=== PATIENT | female | born 1955 | race Hispanic/Latino ===

== ENCOUNTER 2025-07-25 14:32 | Inpatient (IN) | payer MEDICARE, OTHER ==
[~2025-07-25] VITALS: Ht 162.6 cm; Wt 59.0 kg
[2025-07-25] MEDS ORDERED: ARTIFICAL TEARS SOL 15 ML OP PRN ×2 (17:30→18:00)
[2025-07-25] MEDS ORDERED: guaiFENesin-DM 200/20MG 10ML PO PRN (17:30)
[2025-07-25] MEDS ORDERED: LOPERAMIDE HCL 2 MG CAP PO PRN (17:30)
[2025-07-25] MEDS ORDERED: BENZOCAINE/MENTH/CETYLPYRD CL 1 EACH LOZENGE MM PRN (17:30)
[2025-07-25] MEDS ORDERED: MAG/ALUM/SIMETH 30 ML UDCUP PO PRN (17:30)
[2025-07-25] MEDS ORDERED: NITROGLYCERIN 0.4 MG SL TAB SL PRN (17:30)
[2025-07-25] MEDS ORDERED: LIDOCAINE HCL 2% VISCOUS 30 ML, MAG/ALUM/SIMETH 30ML 30 ML, DICYCLOMINE HCL 20 MG PO PRN (17:30)
--- NOTE | 2025-07-25 17:52 | NUR ---
PT BEDDED AT THIS TIME.
--- NOTE | 2025-07-25 18:15 | NUR ---
pt moved to er room 12 at this time assumed care
--- NOTE | 2025-07-25 20:14 | HP ---
[facility] HISTORY & PHYSICAL Date Patient Seen: Jul 25, 2025 Time of Visit: 20:07 Supervising Physician: Dr Fang Romero Primary Care Physician: Dr. Iqbal Outpatient Specialists: [ ] Inpatient Consults: [ ] PROBLEM LIST: Nonhealing wound, left middle finger status post incision and drainage, currently undergoing out of hospital wound care with Dr. Romero, POA Hypertension, POA Hyperlipidemia, POA DM type 2, with hyperglycemia, POA PLAN: Admit to medical-surgical floor with telemetry VS per unit protocol Facilitate MR I of the right hand Keep serum glucose less than 150 ISS and fingerstick per unit protocol Keep SBP less than 160 P.r.n. hydralazine and labetalol Replete electrolyte accordingly Wound care consult Heart healthy diet CBC, CMP, magnesium level daily HPI: 69-year-old female with past medical history of hypertension, DM type 2, hyperlipidemia, who presented to ED from Dr. Romero office here for evaluation of nonhealing left middle finger wound. Patient was seen and examined in ED with present at bedside. Apparently patient had a spider bite last June 2025, and underwent incision and drainage, afterwards was sent home on a 14 day course of antibiotic therapy (completed), and also undergoing wound care as outpatient with Dr. Romero. Today patient was sent to ER for evaluation of possible osteomyelitis on the affected finger. At present patient is currently hemodynamically stable, on room air with appropriate oxygen saturation, denies any headache, chest pain, fever, cough, diarrhea, or flu-like symptoms. Her only symptoms was nonetheless on her left middle finger and she had this since surgery. Patient denies any smoking, alcohol intake, or illicit drug use. PAST MEDICAL HX: see above PAST SURGICAL HX: noncontributory SOCIAL HISTORY: No tobacco, ETOH, or illicit drug use Coded Allergies: No Known Drug Allergies (Unverified Allergy, Unknown, 07/25/25) REVIEW OF SYSTEMS: 12 point ROS reviewed with patient. Pertinent positives mentioned above. Otherwise negative. PHYSICAL EXAM: GENERAL: alert, weak, awake oriented x 3 HEENT: EOMI, Sclera non icteric, moist mucosa NECK: Supple, no JVD, trachea midline LUNGS: Clear breath sounds bilaterally. No wheezes HEART: Regular rate and rhythm. Normal S1 and S2, without murmurs ABD: Abdomen soft, nontender. Bowel sounds present EXT: No clubbing cyanosis or edema; with wound to left middle finger with dressing in place, no lissette drainage noted NEURO: Alert and oriented to person, follows commands Vital Signs (last 8hr) Date Time Temp Pulse Resp B/P (MAP) Pulse Ox O2 Delivery O2 Flow Rate FiO2 07/25/25 18:45 98.2 82 16 141/76 98 Room Air* 0 21 07/25/25 14:42 99.1 67 16 149/74 100 Room Air* 0 21 07/25/25 14:39 99.1 67 16 149/74 100 Room Air 0 LABS: DIAGNOSTICS / RADIOLOGY RESULTS: [ ] PLAN NEURO: Minimize central acting medications as possible. Maintain fall precautions, adequate lighting during the day PULMONARY: Supplemental 02 as needed. Maintain aspiration precautions at all times CARDIOVASCULAR: Follow hemodynamics. Vital signs per facility protocol GI & NUTRITION: Continue with nutritional support. Continue stool softeners and laxatives as needed. KIDNEYS & ELECTROLYTES: Strict monitoring of intake, output and overall fluid balance. Avoid nephrotoxic medications to the extent possible. Medications to be dosed according to renal function. Monitor electrolytes and replace as needed ENDOCRINE: Maintain blood glucose between 100-180 at all times. Hypoglycemia protocol in place INFECTIOUS DISEASE: Trend temperature, WBC and procalcitonin level Follow cultures, deescalate antibiotics as soon as possible. Panculture if new onset fever ONCOLOGY/HEMATOLOGY/COAGULATION: Monitor for s/s of bleeding Monitor hemoglobin, coagulation studies as needed SKIN: Pressure ulcer prevention per facility protocol Specialty mattress ORTHO/REHAB: Continue PT/OT Prophylaxis: Continue GI and DVT prophylaxis Code Status: Full Resuscitation Disposition: TBD Supervising physician: Dr. Fang ROBERTSON,YANY Jordan [facility] Jul 25, 2025 20:14
[2025-07-25 20:34] LABS: NUCLEATED RED BLOOD CELLS 0.0 % (0.0-0.19); PLATELET COUNT (AUTO) 355 K/uL (130-400); RED BLOOD CELL COUNT(AUTO) 3.99 MIL/uL (4.00-5.50); RED CELL DISTRIBUTION WIDTH 12.7 % (11.0-15.5); WHITE BLOOD COUNT (AUTO) 9.4 K/uL (4.8-10.8)
[2025-07-25 20:37] LABS: IMMATURE GRANULOCYTE ABSOLUTE 0.04 K/uL (0-1)
[2025-07-25 20:53] LABS: ASPARTATE AMINOTRANSFERASE 15.0 U/L (10-37); CREATININE 0.6 mg/dL (0.5-1.0); GLOMERULAR FILTR. RATE CALC 96.0 mL/min (>90); GLUCOSE,RANDOM 159.0 mg/dL (70-105); SODIUM SERUM 139.0 mmol/L (136-145); TOTAL PROTEIN, SERUM 7.6 g/dL (6.0-8.3); UREA NITROGEN, BLOOD 13.0 mg/dL (7-18)
[2025-07-26] VITALS (9 sets, daily range): BP systolic 144–176; BP diastolic 67–92; PULSE 81–90; RESP 14–20; TEMP 97.8–98.6; O2SAT 97
[2025-07-26] MEDS ORDERED: METF-444 PO (05:26)
[2025-07-26] MEDS ORDERED: ATOR20TA65 PO (05:26)
[2025-07-26] MEDS ORDERED: GLYB5TAB8 PO (05:26)
[2025-07-26] MEDS ORDERED: LISI20TA24 PO (05:26)
[2025-07-26] MEDS ORDERED: EMPA25TA PO (05:26)
[2025-07-26] MEDS ORDERED: FENO145T26 PO (05:26)
[2025-07-26 06:30] LABS: ASPARTATE AMINOTRANSFERASE 13.0 U/L (10-37); CREATININE 0.5 mg/dL (0.5-1.0); GLOMERULAR FILTR. RATE CALC 100.0 mL/min (>90); GLUCOSE,RANDOM 67.0 mg/dL (70-105); SODIUM SERUM 136.0 mmol/L (136-145); TOTAL PROTEIN, SERUM 7.3 g/dL (6.0-8.3); UREA NITROGEN, BLOOD 12.0 mg/dL (7-18)
--- NOTE | 2025-07-26 11:16 | NUR ---
DCP:HOME Pt currently lives at home with her Maikel Webster [phone]. Pt denies having any DME, home health, or provider services. Pt states that there are times that she does require assistance with ADLs and is the one to assist with tasks. PCP is Dr. Iqbal and uses [facility] for any RX needs. At [place] pt will want to go home and family can assist with transportation. Addendum: 07/26/25 at 1118 by MARIA DEL ROSARIO ALDRIDGE SS Amended: Links added.
[2025-07-26] MEDS ORDERED: PoTASSium chl 10% ELIXIR 20MEQ 20 MEQ/15 ML UDCUP PO PRN (12:00)
--- NOTE | 2025-07-26 12:49 | PN ---
[facility] PROGRESS NOTE Date Patient Seen: Jul 26, 2025 Time of Visit: 12:49 Supervising Physician: Dr. Shade Riddle Primary Care Physician: Dr. Iqbal Outpatient Specialists: [ ] Inpatient Consults: [ ] PROBLEM LIST: Nonhealing wound, left middle finger status post incision and drainage, currently undergoing out of hospital wound care with Dr. Romero, POA DM type 2, with hyperglycemia, POA Electrolytes derangement syndrome: Hypokalemia, POA Moderate protein calorie malnutrition, POA CHRONIC PROBLEM LIST: Hypertension, Hyperlipidemia, DM type 2, with hyperglycemia, PLAN: Telemetry MRI left middle finger hand, today 07/26/2025 Review and reconcile patient's home medications Follow recommendations of wound care physician Diabetes mellitus type 2 with sliding scale regular insulin DVT prophylaxis with heparin 5000 units subQ b.i.d. GI prophylaxis with Protonix 40 mg p.o. daily A.m. labs ordered INTERVAL HISTORY: The patient was assessed in seen sitting outside the bed in a chair near her spouse. Awake alert and oriented. Reviewed with patient and spouse diagnostic tests upcoming, left middle finger MRI, laboratory results and vital signs. Patient denies pain, shortness of the breath fever, chills, nauseousness, and constipation currently. Vital signs stable. Afebrile A.m. labs ordered REVIEW OF SYSTEMS: 12 point ROS reviewed with patient. Pertinent positives mentioned above. Otherwise negative. PHYSICAL EXAM: GENERAL: alert, weak, awake oriented x 3 HEENT: EOMI, Sclera non icteric, moist mucosa NECK: Supple, no JVD, trachea midline LUNGS: Clear breath sounds bilaterally. No wheezes HEART: Regular rate and rhythm. Normal S1 and S2, without murmurs ABD: Abdomen soft, nontender. Bowel sounds present EXT: No clubbing cyanosis or edema; with wound to left middle finger with dressing in place, no lissette drainage noted NEURO: Alert and oriented to person, follows commands Vital Signs (last 8hr) Date Time Temp Pulse Resp B/P (MAP) Pulse Ox O2 Delivery O2 Flow Rate FiO2 07/26/25 11:17 98.1 83 14 146/80 99 Room Air 07/26/25 07:41 98.2 90 18 147/92 97 Room Air LABS: Hematology Labs: Test 07/25/25 17:55 Range/Units White Blood Count 9.4 4.8-10.8 K/uL Red Blood Count 3.99 L 4.00-5.50 MIL/uL Hemoglobin 11.6 L 12.0-16.0 g/dL Hematocrit 35.2 L 36-48 % Mean Corpuscular Volume 88.2 79-99 fL Mean Corpuscular Hemoglobin 29.1 27.0-33.0 pg Mean Corpuscular Hemoglobin Concent 33.0 32.0-36.0 g/dL Red Cell Distribution Width 12.7 11.0-15.5 % Platelet Count 355 130-400 K/uL Mean Platelet Volume 10.1 7.5-10.5 fL Immature Granulocyte % (Auto) 0.4 0-1 % Neutrophils (%) (Auto) 73.8 40.0-77.0 % Lymphocytes (%) (Auto) 17.8 L 21.0-51.0 % Monocytes (%) (Auto) 6.7 3.0-13.0 % Eosinophils (%) (Auto) 1.1 0.0-8.0 % Basophils (%) (Auto) 0.2 0.0-5.0 % Neutrophils # (Auto) 7.0 1.8-7.7 K/uL Lymphocytes # (Auto) 1.7 1.0-4.8 K/uL Monocytes # (Auto) 0.6 0.1-1.0 K/uL Eosinophils # (Auto) 0.10 0.00-0.70 K/uL Basophils # (Auto) 0.02 0.00-0.20 K/uL Absolute Immature Granulocyte (auto 0.04 0-1 K/uL Nucleated Red Blood Cells 0.0 0.0-0.19 % Chemistry Labs: Test 07/26/25 10:48 07/26/25 05:54 07/25/25 20:27 07/25/25 17:55 Range/Units Whole Blood Glucose 149 #H 70-110 MG/DL Sodium Level 136 136-145 mmol/L Potassium Level 3.2 L 3.5-5.1 mmol/L Chloride Level 99 L 101-111 mmol/L Carbon Dioxide Level 25 21-32 mmol/L Blood Urea Nitrogen 12 7-18 mg/dL Creatinine 0.5 0.5-1.0 mg/dL Glomerular Filtration Rate Calc 100 >90 mL/min Random Glucose 67 #L 70-105 mg/dL Total Calcium 8.6 8.5-10.1 mg/dL Total Bilirubin 0.4 0.2-1.0 mg/dL Aspartate Amino Transf (AST/SGOT) 13 10-37 U/L Alanine Aminotransferase (ALT/SGPT) 13 12-78 U/L Alkaline Phosphatase 91 50-136 U/L Total Protein 7.3 6.0-8.3 g/dL Albumin 2.8 L 3.5-5.0 g/dL Magnesium Level 2.00 1.80-2.40 mg/dL C-Reactive Protein, Quantitative 79.70 H 0.5-3.0 mg/L Procalcitonin 0.13 0.05-0.5 ng/mL Test 07/25/25 17:50 Range/Units Hemoglobin A1c 9.5 H 4.0-6.0 % Estimated Average Glucose (eAG) 226 H 70-126 mg/dL DIAGNOSTICS / RADIOLOGY RESULTS: [ ] PLAN NEURO: Minimize central acting medications as possible. Maintain fall precautions, adequate lighting during the day PULMONARY: Supplemental 02 as needed. Maintain aspiration precautions at all times CARDIOVASCULAR: Follow hemodynamics. Vital signs per facility protocol GI & NUTRITION: Continue with nutritional support. Continue stool softeners and laxatives as needed. KIDNEYS & ELECTROLYTES: Strict monitoring of intake, output and overall fluid balance. Avoid nephrotoxic medications to the extent possible. Medications to be dosed according to renal function. Monitor electrolytes and replace as needed ENDOCRINE: Maintain blood glucose between 100-180 at all times. Hypoglycemia protocol in place INFECTIOUS DISEASE: Trend temperature, WBC and procalcitonin level Follow cultures, deescalate antibiotics as soon as possible. Panculture if new onset fever ONCOLOGY/HEMATOLOGY/COAGULATION: Monitor for s/s of bleeding Monitor hemoglobin, coagulation studies as needed SKIN: Pressure ulcer prevention per facility protocol Specialty mattress ORTHO/REHAB: Continue PT/OT Prophylaxis: Continue GI and DVT prophylaxis Code Status: Full Resuscitation Disposition: SAAD HATHAWAY AGACNP Jul 26, 2025 12:49
--- NOTE | 2025-07-26 13:57 | NUR ---
[facility] Consult: Patient assessed by wound healing team. See wound assessment. Assessment and recommendations provided to primary nurse. Education provided to patient r/t to wound and wound care treatment. Addendum: 07/26/25 at 1522 by DENISE TANG RN RN/ Amended: Links added.
[2025-07-26] MEDS: PoTASSium chloRIDE 20MEQ ER 20 MEQ ERTAB PO PRN (14:14)
--- NOTE | 2025-07-26 15:31 | CONS ---
CONSULTATION NOTE Date of Service: Jul 26, 2025 Reason for Consultation: [ ] Requesting Physician: [ ] HISTORY OF PRESENT ILLNESS: Patient is evaluated at bedside in room 329 with at bedside. The patient is a 69-year-old female with past medical history of hypertension, DM type 2, hyperlipidemia, who presented to ED from Dr. Romero office here for evaluation of nonhealing left middle finger wound. Patient was seen and examined in ED with present at bedside. Apparently patient had a spider bite last June 2025, and underwent incision and drainage, afterwards was sent home on a 14 day course of antibiotic therapy (completed), and also undergoing wound care as outpatient with Dr. Romero. Today patient was sent to ER for evaluation of possible osteomyelitis on the affected finger. Pending MRI today. REVIEW OF SYSTEMS CONSTITUTIONAL: Denies fever, chills, or fatigue. HEAD/FACE: No signs of trauma. EENT: Denies eye pain, blurred vision, double vision, or light sensitivity. RESPIRATORY: Denies shortness of breath, cough, wheezing CARDIOVASCULAR: Denies chest pain, palpitation, syncope GASTROINTESTINAL/ABDOMINAL: Denies abdominal pain, constipation, diarrhea, nausea or vomiting GENITOURINARY: Denies dysuria or hematuria. MUSCULOSKELETAL: Denies joint pain, tenderness, or trauma. INTEGUMENTARY: Denies rash or itchiness NEUROLOGICAL/PSYCH: Denies anxiety, depression, heat or cold intolerance. PAST MEDICAL HX: see above PAST SURGICAL HX: noncontributory SOCIAL HISTORY: No tobacco, ETOH, or illicit drug use Coded Allergies: No Known Drug Allergies (Unverified Allergy, Unknown, 07/25/25) REVIEW OF SYSTEMS: 12 point ROS reviewed with patient. Pertinent positives mentioned above. Otherwise negative. Coded Allergies: No Known Drug Allergies (Unverified Allergy, Unknown, 07/25/25) PHYSICAL EXAM EYES: Anicteric. Pupils equal and reactive. HENT: No oral thrush seen, moist Oral mucosa NECK: Supple, no JVD or thyromegaly. LUNGS: Good air entry. No rales, no rhonchi. CARDIOVASCULAR: S1, S2 regular. No murmur heard. ABDOMEN: Soft, non tender, bowel sounds present, no organomegaly CENTRAL NERVOUS SYSTEM: Awake, alert, oriented x 3. No focal deficits. SKIN: No rashes, no swelling. LYMPHATICS: No peripheral lymphadenopathy MUSCULOSKELETAL: No joint swelling, erythema or tenderness. EXTREMITIES: No cyanosis or clubbing BACK: No deformity, no pressure ulcer. GENITOURINARY: No dysuria or hematuria Vital Sign (Last 24 Hours) 07/26/25 07/26/25 08:20 15:26 Temp 98.1 Pulse 89 Resp 18 B/P (MAP) 176/85 Pulse Ox 97 O2 Delivery Room Air O2 Flow Rate 0 FiO2 21 LABS: Laboratory: Test 07/26/25 10:48 07/26/25 05:54 07/25/25 20:27 07/25/25 17:55 Range/Units Whole Blood Glucose 149 #H 70-110 MG/DL Sodium Level 136 136-145 mmol/L Potassium Level 3.2 L 3.5-5.1 mmol/L Chloride Level 99 L 101-111 mmol/L Carbon Dioxide Level 25 21-32 mmol/L Blood Urea Nitrogen 12 7-18 mg/dL Creatinine 0.5 0.5-1.0 mg/dL Glomerular Filtration Rate Calc 100 >90 mL/min Random Glucose 67 #L 70-105 mg/dL Total Calcium 8.6 8.5-10.1 mg/dL Total Bilirubin 0.4 0.2-1.0 mg/dL Aspartate Amino Transf (AST/SGOT) 13 10-37 U/L Alanine Aminotransferase (ALT/SGPT) 13 12-78 U/L Alkaline Phosphatase 91 50-136 U/L Total Protein 7.3 6.0-8.3 g/dL Albumin 2.8 L 3.5-5.0 g/dL Magnesium Level 2.00 1.80-2.40 mg/dL C-Reactive Protein, Quantitative 79.70 H 0.5-3.0 mg/L White Blood Count 9.4 4.8-10.8 K/uL Red Blood Count 3.99 L 4.00-5.50 MIL/uL Hemoglobin 11.6 L 12.0-16.0 g/dL Hematocrit 35.2 L 36-48 % Mean Corpuscular Volume 88.2 79-99 fL Mean Corpuscular Hemoglobin 29.1 27.0-33.0 pg Mean Corpuscular Hemoglobin Concent 33.0 32.0-36.0 g/dL Red Cell Distribution Width 12.7 11.0-15.5 % Platelet Count 355 130-400 K/uL Mean Platelet Volume 10.1 7.5-10.5 fL Immature Granulocyte % (Auto) 0.4 0-1 % Neutrophils (%) (Auto) 73.8 40.0-77.0 % Lymphocytes (%) (Auto) 17.8 L 21.0-51.0 % Monocytes (%) (Auto) 6.7 3.0-13.0 % Eosinophils (%) (Auto) 1.1 0.0-8.0 % Basophils (%) (Auto) 0.2 0.0-5.0 % Neutrophils # (Auto) 7.0 1.8-7.7 K/uL Lymphocytes # (Auto) 1.7 1.0-4.8 K/uL Monocytes # (Auto) 0.6 0.1-1.0 K/uL Eosinophils # (Auto) 0.10 0.00-0.70 K/uL Basophils # (Auto) 0.02 0.00-0.20 K/uL Absolute Immature Granulocyte (auto 0.04 0-1 K/uL Nucleated Red Blood Cells 0.0 0.0-0.19 % Procalcitonin 0.13 0.05-0.5 ng/mL Test 07/25/25 17:50 Range/Units Hemoglobin A1c 9.5 H 4.0-6.0 % Estimated Average Glucose (eAG) 226 H 70-126 mg/dL DIAGNOSTICS / RADIOLOGY: [ ] PROBLEM LIST : Non healing wound of left middle finger Type 2 dm with other skin ulcer PLAN: Wound care to left middle finger - Cleanse with normal saline, pat dry, apply santyl, cover with gauze, secure with tape change daily and prn MRI of left hand today Keep wounds clean and dry Offloading/reposition q 2 hours Comorbidities per primary care team Further Management per hospital course. Thank You for the consult and allowing us to participate in the care of this patient. ATTESTATION BY PHYSICIAN I have seen and examined the patient. I reviewed the documentation, medical decision making, and treatment plan as noted by the mid-level provider above. I agree with the findings and plan of care. REDD ROMERO MD, [address] [employer] [employer] Jul 26, 2025 15:31
[2025-07-27] VITALS (8 sets, daily range): BP systolic 126–146; BP diastolic 64–76; PULSE 78–83; RESP 15–20; TEMP 97.4–98.3; O2SAT 97–98
[2025-07-27] MEDS: FENOFIBRATE NANOCRYSTALLIZED 145 MG TAB PO SCH (08:27)
[2025-07-27] MEDS: LISINOPRIL 20 MG TABLET PO SCH (08:28)
--- NOTE | 2025-07-27 21:39 | PN ---
[facility] PROGRESS NOTE Date Patient Seen: Jul 27, 2025 Time of Visit: 21:35 Supervising Physician: Dr. Romero Primary Care Physician: Dr. Iqbal Outpatient Specialists: Dr. Rey Romero (Wound care) Inpatient Consults: [Dr. Rey Romero (Wound care) PROBLEM LIST: Nonhealing wound, left middle finger status post incision and drainage, currently undergoing out of hospital wound care with Dr. Romero, POA -awaiting MRI left middle finger results DM type 2, with hyperglycemia, POA Electrolytes derangement syndrome: Hypokalemia, POA Moderate protein calorie malnutrition, POA CHRONIC PROBLEM LIST: Hypertension, Hyperlipidemia, DM type 2, with hyperglycemia, PLAN: Telemetry MRI left middle finger hand, today 07/26/2025 Review and reconcile patient's home medications Antibiotic therapy: Zosyn 3.375 g IV Q8Hr Follow recommendations of wound care physician Diabetes mellitus type 2 with sliding scale regular insulin DVT prophylaxis with heparin 5000 units subQ b.i.d. GI prophylaxis with Protonix 40 mg p.o. daily A.m. labs ordered INTERVAL HISTORY: 07/26-The patient was assessed in seen sitting outside the bed in a chair near her spouse. Awake alert and oriented. Reviewed with patient and spouse diagnostic tests upcoming, left middle finger MRI, laboratory results and vital signs. Patient denies pain, shortness of the breath fever, chills, nauseousness, and constipation currently. Vital signs stable. Afebrile A.m. labs ordered 07/27-examined saw the patient by myself. Left middle finger dressing status post incision and drainage by wound care physician as an outpatient. Patient is status post clues spider bite. Patient denies pain, fever, chills, nauseousness, weakness in left hand, and constipation. Vital signs were stable. Awaiting results of MRI. Antibiotic therapy: Zosyn 3.375 g IV q.8 hours. A. m. labs ordered REVIEW OF SYSTEMS: 12 point ROS reviewed with patient. Pertinent positives mentioned above. Otherwise negative. PHYSICAL EXAM: GENERAL: alert, weak, awake oriented x 3 HEENT: EOMI, Sclera non icteric, moist mucosa NECK: Supple, no JVD, trachea midline LUNGS: Clear breath sounds bilaterally. No wheezes HEART: Regular rate and rhythm. Normal S1 and S2, without murmurs ABD: Abdomen soft, nontender. Bowel sounds present EXT: No clubbing cyanosis or edema; with wound to left middle finger with dressing in place, no lissette drainage noted NEURO: Alert and oriented to person, follows commands Vital Signs (last 8hr) Date Time Temp Pulse Resp B/P (MAP) Pulse Ox O2 Delivery O2 Flow Rate FiO2 07/27/25 20:38 97.9 79 18 138/70 98 Room Air 07/27/25 15:41 97.3 79 15 144/73 98 Room Air LABS: Chemistry Labs: Test 07/27/25 19:10 07/26/25 05:54 Range/Units Whole Blood Glucose 138 H 70-110 MG/DL Sodium Level 136 136-145 mmol/L Potassium Level 3.2 L 3.5-5.1 mmol/L Chloride Level 99 L 101-111 mmol/L Carbon Dioxide Level 25 21-32 mmol/L Blood Urea Nitrogen 12 7-18 mg/dL Creatinine 0.5 0.5-1.0 mg/dL Glomerular Filtration Rate Calc 100 >90 mL/min Random Glucose 67 #L 70-105 mg/dL Total Calcium 8.6 8.5-10.1 mg/dL Total Bilirubin 0.4 0.2-1.0 mg/dL Aspartate Amino Transf (AST/SGOT) 13 10-37 U/L Alanine Aminotransferase (ALT/SGPT) 13 12-78 U/L Alkaline Phosphatase 91 50-136 U/L Total Protein 7.3 6.0-8.3 g/dL Albumin 2.8 L 3.5-5.0 g/dL DIAGNOSTICS / RADIOLOGY RESULTS: [ ] PLAN: Telemetry MRI left middle finger hand, today 07/26/2025 Review and reconcile patient's home medications Antibiotic therapy: Zosyn 3.375 g IV Q8Hr Follow recommendations of wound care physician Diabetes mellitus type 2 with sliding scale regular insulin DVT prophylaxis with heparin 5000 units subQ b.i.d. GI prophylaxis with Protonix 40 mg p.o. daily A.m. labs ordered NEURO: Minimize central acting medications as possible. Maintain fall precautions, adequate lighting during the day PULMONARY: Supplemental 02 as needed. Maintain aspiration precautions at all times CARDIOVASCULAR: Follow hemodynamics. Vital signs per facility protocol GI & NUTRITION: Continue with nutritional support. Continue stool softeners and laxatives as needed. KIDNEYS & ELECTROLYTES: Strict monitoring of intake, output and overall fluid balance. Avoid nephrotoxic medications to the extent possible. Medications to be dosed according to renal function. Monitor electrolytes and replace as needed ENDOCRINE: Maintain blood glucose between 100-180 at all times. Hypoglycemia protocol in place INFECTIOUS DISEASE: Trend temperature, WBC and procalcitonin level Follow cultures, deescalate antibiotics as soon as possible. Panculture if new onset fever ONCOLOGY/HEMATOLOGY/COAGULATION: Monitor for s/s of bleeding Monitor hemoglobin, coagulation studies as needed SKIN: Pressure ulcer prevention per facility protocol Specialty mattress ORTHO/REHAB: Continue PT/OT Prophylaxis: Continue GI and DVT prophylaxis Code Status: Full Resuscitation Disposition: SAAD HATHAWAY AGACNP Jul 27, 2025 21:39
[2025-07-27] MEDS: ZOSYN 3.375GM +NS 50ML IV SCH (22:36)
[2025-07-28] VITALS (7 sets, daily range): BP systolic 130–151; BP diastolic 59–76; PULSE 75–86; RESP 14–18; TEMP 97.3–98.7; O2SAT 98
--- NOTE | 2025-07-28 04:13 | HMCIMG ---
EXAM: MR Left Hand Finger without IV Contrast CLINICAL HISTORY: Left middle finger infection. TECHNIQUE: Multiplanar multi-sequence MRI of the left hand. CONTRAST: None. COMPARISON: None provided. FINDINGS: Multifocal bony erosions and bone marrow edema involving the third finger distal, middle, and proximal phalanx, most pronounced in the distal phalanx with surrounding soft tissue edema, compatible with osteomyelitis and cellulitis. No drainable fluid collection or abscess is evident. The volar and dorsal tendon/neto mechanisms are grossly intact to the extent visualized. Collateral ligaments are grossly unremarkable. The ulnar collateral and radial collateral ligaments are grossly unremarkable. IMPRESSION: Multifocal bony erosions and bone marrow edema involving the third finger distal, middle, and proximal phalanx, most pronounced in the distal phalanx with surrounding soft tissue edema, compatible with osteomyelitis and cellulitis. No drainable fluid collection or abscess is evident. /[facility]
[2025-07-28 04:58] LABS: IMMATURE GRANULOCYTE ABSOLUTE 0.04 K/uL (0-1); NUCLEATED RED BLOOD CELLS 0.0 % (0.0-0.19); PLATELET COUNT (AUTO) 339 K/uL (130-400); RED BLOOD CELL COUNT(AUTO) 3.66 MIL/uL (4.00-5.50); RED CELL DISTRIBUTION WIDTH 12.9 % (11.0-15.5); WHITE BLOOD COUNT (AUTO) 6.7 K/uL (4.8-10.8)
[2025-07-28 05:21] LABS: ASPARTATE AMINOTRANSFERASE 14.0 U/L (10-37); CREATININE 0.6 mg/dL (0.5-1.0); GLOMERULAR FILTR. RATE CALC 96.0 mL/min (>90); GLUCOSE,RANDOM 160.0 mg/dL (70-105); SODIUM SERUM 137.0 mmol/L (136-145); TOTAL PROTEIN, SERUM 6.9 g/dL (6.0-8.3); UREA NITROGEN, BLOOD 15.0 mg/dL (7-18)
--- NOTE | 2025-07-28 11:08 | PN ---
[facility] PROGRESS NOTE Date Patient Seen: Jul 28, 2025 Time of Visit: 11:04 Supervising Physician: Dr. Shade Riddle Primary Care Physician: Dr. Iqbal Outpatient Specialists: Dr. Rey Romero (Wound care) Inpatient Consults: [Dr. Rey Romero (Wound care) Dr. Ballesteros (ID) PROBLEM LIST: Nonhealing wound, left middle finger status post incision and drainage, out of hospital wound care with Dr. Romero, POA -MRI results osteomyelitis and cellulitis DM type 2, with hyperglycemia, POA Electrolytes derangement syndrome: Hypokalemia, POA Moderate protein calorie malnutrition, POA CHRONIC PROBLEM LIST: Hypertension, Hyperlipidemia, DM type 2, with hyperglycemia, PLAN: Telemetry MRI left middle finger hand, today 07/26/2025 Review and reconcile patient's home medications Antibiotic therapy: Zosyn 3.375 g IV Q8Hr Consult ID specialist Follow recommendations of wound care physician Diabetes mellitus type 2 with sliding scale regular insulin DVT prophylaxis with heparin 5000 units subQ b.i.d. GI prophylaxis with Protonix 40 mg p.o. daily A.m. labs ordered INTERVAL HISTORY: 07/26-The patient was assessed in seen sitting outside the bed in a chair near her spouse. Awake alert and oriented. Reviewed with patient and spouse diagnostic tests upcoming, left middle finger MRI, laboratory results and vital signs. Patient denies pain, shortness of the breath fever, chills, nauseousness, and constipation currently. Vital signs stable. Afebrile A.m. labs ordered 07/27-examined saw the patient by myself. Left middle finger dressing status post incision and drainage by wound care physician as an outpatient. Patient is status post clues spider bite. Patient denies pain, fever, chills, nauseousness, weakness in left hand, and constipation. Vital signs were stable. Awaiting results of MRI. Antibiotic therapy: Zosyn 3.375 g IV q.8 hours. A.m. labs ordered 07/28-Assessed and examined patient was seen by myself while sitting in a chair with her present awake alert and oriented and in no acute distress. Reviewed and discussed with the patient results from MRI procedure: Suspect based on results:Multifocal bony erosions and bone marrow edema involving the t hird finger distal, middle, and proximal phalanx, most pronounced in the distal phalanx with surrounding soft tissue edema, compatible with osteomyelitis and cellulitis.. Patient denies pain, fever, nauseousness, diarrhea and constipation currently. Awaiting recommendations from ID specialists. A.m. labs ordered REVIEW OF SYSTEMS: 12 point ROS reviewed with patient. Pertinent positives mentioned above. Otherwise negative. PHYSICAL EXAM: GENERAL: alert, weak, awake oriented x 3 HEENT: EOMI, Sclera non icteric, moist mucosa NECK: Supple, no JVD, trachea midline LUNGS: Clear breath sounds bilaterally. No wheezes HEART: Regular rate and rhythm. Normal S1 and S2, without murmurs ABD: Abdomen soft, nontender. Bowel sounds present EXT: No clubbing cyanosis or edema; with wound to left middle finger with dressing in place, no lissette drainage noted NEURO: Alert and oriented to person, follows commands Vital Signs (last 8hr) Date Time Temp Pulse Resp B/P (MAP) Pulse Ox O2 Delivery O2 Flow Rate FiO2 07/28/25 07:38 98.1 78 14 151/71 98 Room Air 07/28/25 04:11 97.3 80 18 149/76 99 Room Air LABS: Hematology Labs: Test 07/28/25 04:25 Range/Units White Blood Count 6.7 4.8-10.8 K/uL Red Blood Count 3.66 L 4.00-5.50 MIL/uL Hemoglobin 10.7 L 12.0-16.0 g/dL Hematocrit 31.0 L 36-48 % Mean Corpuscular Volume 84.7 79-99 fL Mean Corpuscular Hemoglobin 29.2 27.0-33.0 pg Mean Corpuscular Hemoglobin Concent 34.5 32.0-36.0 g/dL Red Cell Distribution Width 12.9 11.0-15.5 % Platelet Count 339 130-400 K/uL Mean Platelet Volume 9.3 7.5-10.5 fL Immature Granulocyte % (Auto) 0.6 0-1 % Neutrophils (%) (Auto) 72.2 40.0-77.0 % Lymphocytes (%) (Auto) 20.3 L 21.0-51.0 % Monocytes (%) (Auto) 5.8 3.0-13.0 % Eosinophils (%) (Auto) 1.0 0.0-8.0 % Basophils (%) (Auto) 0.1 0.0-5.0 % Neutrophils # (Auto) 4.8 1.8-7.7 K/uL Lymphocytes # (Auto) 1.4 1.0-4.8 K/uL Monocytes # (Auto) 0.4 0.1-1.0 K/uL Eosinophils # (Auto) 0.07 0.00-0.70 K/uL Basophils # (Auto) 0.01 0.00-0.20 K/uL Absolute Immature Granulocyte (auto 0.04 0-1 K/uL Nucleated Red Blood Cells 0.0 0.0-0.19 % Chemistry Labs: Test 07/28/25 10:47 07/28/25 04:25 Range/Units Whole Blood Glucose 209 H 70-110 MG/DL Sodium Level 137 136-145 mmol/L Potassium Level 4.0 3.5-5.1 mmol/L Chloride Level 100 L 101-111 mmol/L Carbon Dioxide Level 23 21-32 mmol/L Blood Urea Nitrogen 15 7-18 mg/dL Creatinine 0.6 0.5-1.0 mg/dL Glomerular Filtration Rate Calc 96 >90 mL/min Random Glucose 160 H 70-105 mg/dL Total Calcium 8.7 8.5-10.1 mg/dL Magnesium Level 2.00 1.80-2.40 mg/dL Total Bilirubin 0.5 0.2-1.0 mg/dL Aspartate Amino Transf (AST/SGOT) 14 10-37 U/L Alanine Aminotransferase (ALT/SGPT) 16 12-78 U/L Alkaline Phosphatase 79 50-136 U/L Total Protein 6.9 6.0-8.3 g/dL Albumin 2.7 L 3.5-5.0 g/dL DIAGNOSTICS / RADIOLOGY RESULTS: ASON: LEFT MIDDLE FINGER INFECTION ORDERING PHYSICIAN: DIOGENES ROMERO MD PROCEDURE: HND LT WO - MR HAND LEFT WO EXAM: MR Left Hand Finger without IV Contrast CLINICAL HISTORY: Left middle finger infection. TECHNIQUE: Multiplanar multi-sequence MRI of the left hand. CONTRAST: None. COMPARISON: None provided. FINDINGS: Multifocal bony erosions and bone marrow edema involving the third finger distal, middle, and proximal phalanx, most pronounced in the distal phalanx with surrounding soft tissue edema, compatible with osteomyelitis and cellulitis. No drainable fluid collection or abscess is evident. The volar and dorsal tendon/neto mechanisms are grossly intact to the extent visualized. Collateral ligaments are grossly unremarkable. The ulnar collateral and radial collateral ligaments are grossly unremarkable. IMPRESSION: Multifocal bony erosions and bone marrow edema involving the third finger distal, middle, and proximal phalanx, most pronounced in the distal phalanx with surrounding soft tissue edema, compatible with osteomyelitis and cellulitis. No drainable fluid collection or abscess is evident. /[place] DICTATED BY: LINDA PEREZ Jr., MD DATE: 07/28/25511 ELECTRONICALLY SIGNED BY: LINDA PEREZ Jr., MD DATE: 07/28/25511 PLAN: Telemetry MRI left middle finger hand, today 07/26/2025 Review and reconcile patient's home medications Antibiotic therapy: Zosyn 3.375 g IV Q8Hr Follow recommendations of wound care physician New consult ID specialists Diabetes mellitus type 2 with sliding scale regular insulin DVT prophylaxis with heparin 5000 units subQ b.i.d. GI prophylaxis with Protonix 40 mg p.o. daily A.m. labs ordered NEURO: Minimize central acting medications as possible. Maintain fall precautions, adequate lighting during the day PULMONARY: Supplemental 02 as needed. Maintain aspiration precautions at all times CARDIOVASCULAR: Follow hemodynamics. Vital signs per facility protocol GI & NUTRITION: Continue with nutritional support. Continue stool softeners and laxatives as needed. KIDNEYS & ELECTROLYTES: Strict monitoring of intake, output and overall fluid balance. Avoid nephrotoxic medications to the extent possible. Medications to be dosed according to renal function. Monitor electrolytes and replace as needed ENDOCRINE: Maintain blood glucose between 100-180 at all times. Hypoglycemia protocol in place INFECTIOUS DISEASE: Trend temperature, WBC and procalcitonin level Follow cultures, deescalate antibiotics as soon as possible. Panculture if new onset fever ONCOLOGY/HEMATOLOGY/COAGULATION: Monitor for s/s of bleeding Monitor hemoglobin, coagulation studies as needed SKIN: Pressure ulcer prevention per facility protocol Specialty mattress ORTHO/REHAB: Continue PT/OT Prophylaxis: Continue GI and DVT prophylaxis Code Status: Full Resuscitation Disposition: SAAD HATHAWAY AGACNP Jul 28, 2025 11:08
[2025-07-28] MEDS ORDERED: VANCOMYCIN PROTOCOL PER PHARMACY IV SCH (12:00)
[2025-07-28 12:17] LABS: INR 1.08 (0.85-1.15)
[2025-07-28] MEDS: VANCOMYCIN 1.5 GM/250 ML BAG 250 ML IV ONE (13:42)
[2025-07-29 00:05] VITALS: BP 146/66; PULSE 75; RESP 18; TEMP 98
--- NOTE | 2025-07-29 01:50 | CONS ---
INFECTIOUS DISEASE CONSULTATION DATE OF SERVICE: 07/28/2025 REQUESTING PHYSICIAN: Nabil Romero MD REASON FOR CONSULTATION: Left third finger osteomyelitis. HISTORY OF PRESENT ILLNESS: A 69-year-old female with hypertension, diabetes mellitus, dyslipidemia, ____ with a left ____. The patient was recently found to have left third finger abscess for which incision and drainage was done. The patient also took antibiotic for 2 weeks. The patient ____ wound and was sent to the hospital for further care. MRI has been done which is showing osteomyelitis. The patient started on Zosyn . No fever or chills. She denied trauma. No chest pain. No palpitations or orthopnea. PAST MEDICAL HISTORY: * Hypertension. * Diabetes mellitus. * Dyslipidemia. PAST SURGICAL HISTORY: Left third finger incision and drainage. ALLERGIES: No known drug allergies. CURRENT MEDICATIONS: ____. SOCIAL HISTORY: ____. No alcohol, tobacco or illicit drug use. FAMILY HISTORY: Positive for diabetes mellitus. REVIEW OF SYSTEMS: CONSTITUTIONAL: No fever or chills. No weight loss or night sweats. EYES: No eye pain. No photophobia or diplopia. HENT: No sore throat. No rhinorrhea. No earache. NECK: No neck pain or neck swelling. RESPIRATORY: No cough. No hemoptysis or pleuritic pain. CARDIOVASCULAR: No chest pain. No palpitation or orthopnea. GASTROINTESTINAL: Denies nausea, vomiting. GENITOURINARY: No dysuria, urgency or urinary frequency. CENTRAL NERVOUS SYSTEM: No headache, dyspnea, or slurred speech. PSYCHIATRY: No depression, no suicidal ideation. MUSCULOSKELETAL: Positive for left third finger ____ and swelling. PHYSICAL EXAMINATION: GENERAL: Elderly female, awake. VITAL SIGNS: Temperature 98.1, pulse 86, respirations 16, BP 130/____. EYES: No icterus. Pupils equal and reactive. HENT: No oral thrush seen. Moist oral mucosa. NECK: Supple. No JVD or thyromegaly. LUNGS: Good air entry. No rales, no rhonchi. CARDIOVASCULAR: S1 and S2 regular. ____. ABDOMEN: Soft, nontender. Bowel sounds are present. CENTRAL NERVOUS SYSTEM: Awake, alert and oriented x3. No focal deficits. SKIN: No rashes, no itchiness. LYMPHATIC: No peripheral lymphadenopathy. BACK: No deformity, no pressure ulcer. MUSCULOSKELETAL: No joint swelling, erythema, or tenderness. There is ____ wound involving ____ left third finger. There is some soft tissue ____. LABORATORY DATA: Sodium 137, potassium 4.0, BUN 15, creatinine 0.6. WBC is 6.3, hemoglobin 10.7, platelets 239. RADIOLOGY: MRI of the left hand shows osteomyelitis. ASSESSMENT: A 69-year-old female with: * Left hand pain, swelling, and redness ____ with osteomyelitis. * Cellulitis. * Hypertension. * Diabetes mellitus. * Anemia. PLAN: * Stop patient's vancomycin. * ____ Zosyn today. * Obtain ESR. * Obtain CRP. * Continue antidiabetic. * Continue nutritional support. * Monitor electrolytes. * The patient will be followed up closely. TID: [id number] RECEIPT: [id number]
[2025-07-29] MEDS: VANCOMYCIN 1G/250ML KIT 250 ML IV SCH (01:54)
[2025-07-29 04:00] VITALS: BP 164/67; PULSE 75; RESP 17; TEMP 98
[2025-07-29 07:30] VITALS: O2SAT 97
[2025-07-29 08:00] VITALS: BP 146/75; PULSE 81; RESP 18; TEMP 97.8
[2025-07-29 12:00] VITALS: BP 150/64; PULSE 80; RESP 18; TEMP 98.2
--- NOTE | 2025-07-29 13:44 | HMCIMG ---
EXAM: CR Chest, 2 View CLINICAL HISTORY: PICC placement COMPARISON: None provided. FINDINGS: LUNGS: Lung lyle are clear. No focal consolidation, infiltrate, or pulmonary edema. PLEURAL SPACES: No pleural effusion or pneumothorax. MEDIASTINUM: Cardiomediastinal silhouette is within normal limits. Peripherally inserted central catheter (PICC) noted via right upper extremity approach, with catheter tip projecting over the superior vena cava???in satisfactory position. BONES: No acute osseous abnormality identified. IMPRESSION: 1. PICC line via right upper extremity approach with tip in satisfactory position at the superior vena cava. 2. No acute cardiopulmonary abnormality. /[place]
--- NOTE | 2025-07-29 14:30 | NUR ---
ORDER REC'ED FOR [facility], [place] OBTAINED AND REFERRAL SENT
--- NOTE | 2025-07-29 15:45 | NUR ---
WAS ADVISED BY [facility] VIA PHONE THAT PATIENT WAS ACCEPTED FOR NOON TOMORROW. INFORMATION PADDRESS PAGE GIVEN TO PATIENT AND SPOUSE. VERBALIZED UNDERSTANDING
[2025-07-29 16:00] VITALS: BP 167/85; PULSE 77; RESP 18; TEMP 97.9
--- NOTE | 2025-07-29 19:11 | NUR ---
DISCHARGE PIV DC'D PATIENT GIVEN PRESCRIPTION FOR VANCOMYCIN AND CFEPIME PATIENT INFORMED OF APPOINTMENT TOMORROW AT [facility] AT [place] PATIENT INFORMED TO FOLLOW UP WITH PCP ALL QUESTIONS ANSWERED PRIOR TO DISCHARGE
--- NOTE | 2025-07-29 20:14 | PN ---
INFECTIOUS DISEASE PROGRESS NOTE Date of Service: Jul 29, 2025 SUBJECTIVE: [ ] PHYSICAL EXAM EYES: Anicteric. Pupils equal and reactive. HENT: No oral thrush seen, moist Oral mucosa NECK: Supple, no JVD or thyromegaly. LUNGS: Good air entry. No rales, no rhonchi. CARDIOVASCULAR: S1, S2 regular. No murmur heard. ABDOMEN: Soft, non tender, bowel sounds present, no organomegaly CENTRAL NERVOUS SYSTEM: Awake, alert, oriented x 3. No focal deficits. SKIN: No rashes, no swelling. LYMPHATICS: No peripheral lymphadenopathy MUSCULOSKELETAL: No joint swelling, erythema or tenderness. EXTREMITIES: No cyanosis or clubbing BACK: No deformity, no pressure ulcer. GENITOURINARY: No dysuria or hematuria Vital Sign (Last 12 Hours) 07/29/25 07/29/25 12:00 16:00 Temp 98.2 97.9 Pulse 80 77 Resp 18 18 B/P (MAP) 150/64 167/85 Pulse Ox 95 98 O2 Delivery Room Air Room Air Intake & Output (last 24hrs) 07/28/25 07/28/25 07/29/25 14:59 22:59 06:59 Intake Total 400 ml 800.0 ml 540.0 ml Output Total 200 ml Balance 400 ml 800.0 ml 340.0 ml LABS: Laboratory: Test 07/29/25 15:02 07/29/25 05:27 07/28/25 11:46 07/28/25 04:25 Range/Units Whole Blood Glucose 201 H 70-110 MG/DL Bedside Glucose Comment Notified Nurse Prothrombin Time 11.4 9.6-11.6 SEC Prothromb Time International Ratio 1.08 0.85-1.15 Activated Partial Thromboplast Time 28.7 26.3-35.5 SEC C-Reactive Protein, Quantitative 30.10 H 0.5-3.0 mg/L White Blood Count 6.7 4.8-10.8 K/uL Red Blood Count 3.66 L 4.00-5.50 MIL/uL Hemoglobin 10.7 L 12.0-16.0 g/dL Hematocrit 31.0 L 36-48 % Mean Corpuscular Volume 84.7 79-99 fL Mean Corpuscular Hemoglobin 29.2 27.0-33.0 pg Mean Corpuscular Hemoglobin Concent 34.5 32.0-36.0 g/dL Red Cell Distribution Width 12.9 11.0-15.5 % Platelet Count 339 130-400 K/uL Mean Platelet Volume 9.3 7.5-10.5 fL Immature Granulocyte % (Auto) 0.6 0-1 % Neutrophils (%) (Auto) 72.2 40.0-77.0 % Lymphocytes (%) (Auto) 20.3 L 21.0-51.0 % Monocytes (%) (Auto) 5.8 3.0-13.0 % Eosinophils (%) (Auto) 1.0 0.0-8.0 % Basophils (%) (Auto) 0.1 0.0-5.0 % Neutrophils # (Auto) 4.8 1.8-7.7 K/uL Lymphocytes # (Auto) 1.4 1.0-4.8 K/uL Monocytes # (Auto) 0.4 0.1-1.0 K/uL Eosinophils # (Auto) 0.07 0.00-0.70 K/uL Basophils # (Auto) 0.01 0.00-0.20 K/uL Absolute Immature Granulocyte (auto 0.04 0-1 K/uL Nucleated Red Blood Cells 0.0 0.0-0.19 % Erythrocyte Sedimentation Rate 66 H 0-30 MM/HR Sodium Level 137 136-145 mmol/L Potassium Level 4.0 3.5-5.1 mmol/L Chloride Level 100 L 101-111 mmol/L Carbon Dioxide Level 23 21-32 mmol/L Blood Urea Nitrogen 15 7-18 mg/dL Creatinine 0.6 0.5-1.0 mg/dL Glomerular Filtration Rate Calc 96 >90 mL/min Random Glucose 160 H 70-105 mg/dL Total Calcium 8.7 8.5-10.1 mg/dL Magnesium Level 2.00 1.80-2.40 mg/dL Total Bilirubin 0.5 0.2-1.0 mg/dL Aspartate Amino Transf (AST/SGOT) 14 10-37 U/L Alanine Aminotransferase (ALT/SGPT) 16 12-78 U/L Alkaline Phosphatase 79 50-136 U/L Total Protein 6.9 6.0-8.3 g/dL Albumin 2.7 L 3.5-5.0 g/dL DIAGNOSTICS / RADIOLOGY: [ ] ASSESSMENT: Osteomyelitis of the left 3rd finger. PLAN: Case management evaluation for referral to [facility] for outpatient IV antibiotics with vancomycin and cefepime for six weeks. Prescription was written. This case was reviewed and discussed with my supervising physician Dr. Hampton and the above assessment and plan was formulated and agreed upon. ATTESTATION BY PHYSICIAN I have seen and examined the patient. I reviewed the documentation, medical decision making, and treatment plan as noted by the mid-level provider above. I agree with the findings and plan of care. SHIRA HAMPTON MD, [facility] Jul 29, 2025 20:14
--- NOTE | 2025-07-30 11:35 | DS ---
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 Edward Sanches Primary Care Physician: Dr. Iqbal Outpatient Specialists: Dr. Rey Romero (Wound care) Inpatient Consults: [Dr. Rey Romero (Wound care) Dr. Ballesteros (ID) PROBLEM LIST: Nonhealing wound, left middle finger status post incision and drainage, out of h ospital wound care with Dr. Romero, POA -MRI results osteomyelitis and cellulitis DM type 2, with hyperglycemia, POA Electrolytes derangement syndrome: Hypokalemia, POA Moderate protein calorie malnutrition, POA CHRONIC PROBLEM LIST: Hypertension, Hyperlipidemia, DM type 2, with hyperglycemia, PLAN: Telemetry MRI left middle finger hand, today 07/26/2025 Review and reconcile patient's home medications Antibiotic therapy: Zosyn 3.375 g IV Q8Hr Consult ID specialist Follow recommendations of wound care physician Diabetes mellitus type 2 with sliding scale regular insulin DVT prophylaxis with heparin 5000 units subQ b.i.d. GI prophylaxis with Protonix 40 mg p.o. daily A.m. labs ordered HOSPITAL COURSE: 07/26-The patient was assessed in seen sitting outside the bed in a chair near her spouse. Awake alert and oriented. Reviewed with patient and spouse diagnostic tests upcoming, left middle finger MRI, laboratory results and vital signs. Patient denies pain, shortness of the breath fever, chills, nauseousness, and constipation currently. Vital signs stable. Afebrile A.m. labs ordered 07/27-examined saw the patient by myself. Left middle finger dressing status post incision and drainage by wound care physician as an outpatient. Patient is status post clues spider bite. Patient denies pain, fever, chills, nauseousness, weakness in left hand, and constipation. Vital signs were stable. Awaiting results of MRI. Antibiotic therapy: Zosyn 3.375 g IV q.8 hours. A.m. labs ordered 07/28-Assessed and examined patient was seen by myself while sitting in a chair with her present awake alert and oriented and in no acute distress. Reviewed and discussed with the patient results from MRI procedure: Suspect based on results:Multifocal bony erosions and bone marrow edema involving the third finger distal, middle, and proximal phalanx, most pronounced in the distal phalanx with surrounding soft tissue edema, compatible with osteomyelitis and cellulitis.. Patient denies pain, fever, nauseousness, diarrhea and constipation currently. Awaiting recommendations from ID specialists. A.m. labs ordered 07/29-the patient and spouse were sitting in the patient's room during my assessment. The patient is awake, alert, oriented and in no acute distress, as well as denying shortness of the breath, fever, chills, nauseousness, chest pain, diarrhea and constipation currently. Education provided on the importance of maintaining outpatient scheduled appointments at the infusion center [facility]. . Patient has a PICC line. Patient has dressing applied to left middle finger. Reviewed and discussed patient's medications, diagnostic tests that were performed, follow up appointment with wound care specialists, Dr. Romero, and following up with primary care provider within two days for a wellness check. Patient denies needing any refills of standard medications that she is prescribed. Patient verbalizes understanding and can be discharged home with family care. HPI (per admitting provider) 69-year-old female with past medical history of hypertension, DM type 2, hyperlipidemia, who presented to ED from Dr. Romero office here for evaluation of nonhealing left middle finger wound. Patient was seen and examined in ED with present at bedside. Apparently patient had a spider bite last June 2025, and underwent incision and drainage, afterwards was s ent home on a 14 day course of antibiotic therapy (completed), and also undergoing wound care as outpatient with Dr. Romero. Today patient was sent to ER for evaluation of possible osteomyelitis on the affected finger. At present patient is currently hemodynamically stable, on room air with appropriate oxygen saturation, denies any headache, chest pain, fever, cough, diarrhea, or flu-like symptoms. Her only symptoms was nonetheless on her left middle finger and she had this since surgery. Patient denies any smoking, alcohol intake, or illicit drug use. The patient was treated for the following problems: ACTIVE PROBLEM LIST FOR THE HOSPITALIZATION: Nonhealing wound, left middle finger status post incision and drainage, out of hospital wound care with Dr. Romero, [place] -MRI results osteomyelitis and cellulitis DM type 2, with hyperglycemia, POA Electrolytes derangement syndrome: Hypokalemia, POA Moderate protein calorie malnutrition, POA CHRONIC PROBLEMS: continue previous management per PCP unless otherwise indicated Hypertension, Hyperlipidemia, DM type 2, with hyperglycemia, [employer] FINDINGS/RECOMMENDATIONS: [ ] PROCEDURES: as mentioned above DISCHARGE MEDICATIONS: Pt hemodynamically stable and afebrile at time of discharge. PCP notified of patients admission, hospital course and discharge. PHYSICAL EXAM: GENERAL: alert, weak, awake oriented x 3 HEENT: EOMI, Sclera non icteric, moist mucosa NECK: Supple, no JVD, trachea midline LUNGS: Clear breath sounds bilaterally. No wheezes HEART: Regular rate and rhythm. Normal S1 and S2, without murmurs ABD: Abdomen soft, nontender. Bowel sounds present EXT: No clubbing cyanosis or edema; with wound to left middle finger with dressing in place, no lissette drainage noted NEURO: Alert and oriented to person, follows commands FOLLOW-UP: Dr. Iqbal Follow-up with PCP in 2-3 days RECOMMENDATIONS: See Discharge Instructions This case was seen and discussed with my supervising physician. More than 50 minutes spent on discharge process, including evaluation of the patient, discussion with nursing staff, medication reconciliation and follow-up appointments SAAD [facility]IT[facility] Jul 30, 2025 11:35
== END 2025-07-29 19:22 | disposition home or self-care (01) | DRG 638 ==
LOC: EDH 14:32 → UNDOADMOB 14:33 → DIRECT 14:33 → INTOOBSV 14:33 → DIRECT 17:16 → 3AH 07-26 01:20 → DIRECT 07-27 08:00 → OBSVTOIN 07-27 08:00 → UNDOADMIN 07-27 08:00 → DIRECT 07-27 08:00 → INTOOBSV 07-27 08:00 → 3AH 07-27 08:00
PROVIDERS: ADMIT Internal Medicine; ATTEND Internal Medicine
PROC: 02HV33Z Insertion of Infusion Device into Superior Vena Cava, Percutaneous Approach (ICD-10-PCS; principal; 2025-07-29)
DX: E11.69 Type 2 diabetes mellitus with other specified complication (principal); E44.0 Moderate protein-calorie malnutrition; M86.9 Osteomyelitis, unspecified; L02.512 Cutaneous abscess of left hand; L03.012 Cellulitis of left finger; E11.622 Type 2 diabetes mellitus with other skin ulcer; E78.5 Hyperlipidemia, unspecified; I10 Essential (primary) hypertension; E11.65 Type 2 diabetes mellitus with hyperglycemia; E87.6 Hypokalemia; D64.9 Anemia, unspecified; Z83.3 Family history of diabetes mellitus
CPT/HCPCS: 36415; 36569; 71045; 73218; 80053; 82948; 83036; 83735; 84145; 85025; 85610; 85651; 85730; 86140; C1894; G0378; J1644; J1815; J2543; J3373; C1751; J3375